=== PATIENT | female | born 1985 | race Caucasian/White ===

== ENCOUNTER 2016-09-10 05:30 | Inpatient (IN) | payer OTHER ==
[~2016-09-10] VITALS: Ht 167.6 cm; Wt 85.3 kg
[~2016-09-10 05:30] MED LIST: ABILIFY2 MG; CELEXA10 MG PO; CIPRO 500MG TA500 MG PO; IBUPROFEN 600M600 MG PO; IRON TABLETS325 MG PO; PERCOCET 5/3251 EACH PO; PHENERGAN 25MG.25 M1 PO; PRENATAL1 TA2 OR; SYNTHROID0.025 MG PO; VICODIN 5/500 T1 TAB PO; [UNRECOGNIZED DRUG - OTHER] OR
[2016-09-10 05:42] VITALS: BP 144/94
[2016-09-10] MEDS ORDERED: SYNTHROID0.137 MG PO (05:52)
[2016-09-10 06:11] LABS: HEMOGLOBIN 13.8 g/dL (12.2-16.2); LYMPH # 2.4 K/mm3 (0.7-4.5); LYMPH % 33.3 % (10-50.0)
[2016-09-10 07:07] LABS: ABO BLOOD TYPE O; RH BLOOD TYPE POSITIVE
[2016-09-10 07:50] LABS: URINE BILIRUBIN - DIPSTICK NEGATIVE (NEG); URINE BLOOD NEGATIVE (NEG)
--- NOTE | 2016-09-10 08:20 | Operative Note ---
Procedure/Operative Record Procedure Date of procedure: 09/10/16 Pre-Op Dx: Term , previous section Post-Op Dx: Term , previous section Procedure performed: Repeat lower segment transverse section Surgeon: Dr. Ovi Baker Research Spec(s): Brittni Diaz Anesthesia: Clara Donovan EBL (ml): 600 Clinical note: She is a 31-year-old 3 para 2 who was 39 weeks gestational age. She's had previous sections and as result of that was offered repeat lower segment transverse section at term. There is some benefits of surgery were discussed with the patient prior to surgery. Operative findings: She delivered a live-born female child at 7:47 AM on the morning of September 10, 2016. The baby had Apgars of 6 at 1 minute and 8 at 5 minutes. PH is currently pending. Ovaries and tubes appeared normal. Operative note: She was taken to the operating room where epidural anesthesia was found be adequate. She was prepped and draped in normal sterile fashion in the supine position with a leftward tilt. A Rodriguez catheter was in the bladder. A Pfannenstiel skin incision was made with knife then carried through to the underlying layer of fascia with cautery. The fascia was opened in the midline with cautery and extended laterally using Mays scissors. Joselyn clamps were applied to the superior aspect of the fascial incision which was tented up and the underlying rectus muscles dissected off using cautery. The Lomita clamps were then applied to the inferior aspect of the fascial incision which in a similar fashion was tented up and the underlying rectus muscles dissected off using cautery. The rectus muscles were then in the midline, the peritoneum identified, and entered sharply with Metzenbaum scissors. This incision was then extended superiorly and inferiorly with cautery. We had good visualization of the bladder inferiorly. The bladder peritoneum was then opened in the midline and extended laterally using Metzenbaum scissors. A bladder flap was created digitally. The lower blade of the Niyah was inserted so as to push the bladder out of the way. Transverse incision was made through the uterine muscle to the amnion. This incision was then extended laterally using fingers traction. The amnion was entered sharply with knife. The infant's head was then delivered atraumatically. This was followed by the anterior shoulder and the rest of the 's body atraumatically. The oropharynx and nasopharynx were bulb suctioned. The was then handed off to Dr. Cruz who assigned Apgars of 6 at 1 minute and 8 at 5 minutes. We then obtained cord blood as well as cord pH. Using gentle traction on the cord and countertraction on the fundus I was able to easily deliver the placenta intact. It had a normal three-vessel cord. The uterus was then cleared of clots and debris and exteriorized from the abdominal cavity. The uterine incision was then closed using running 0 Vicryl suture in a locked fashion. A second layer of the same suture was used to imbricate the first layer. The bladder peritoneum was then closed using running 2-0 Vicryl suture in a locked fashion. The gutters and cul-de-sac were then cleared of clots and debris and the uterus was returned the abdominal cavity. Once again hemostasis was assured. The peritoneum was grasped with Isamar clamps and closed using running 2-0 Vicryl suture. The rectus muscles were then reapproximated using running 0 Vicryl suture. The fascia was closed using running #1 Vicryl suture. The subcutaneous tissues were then irrigated with warm water followed by closure Carisa's fascia using running 2-0 Monocryl suture. The skin was closed with tatum. Sterile dressings were applied. She tolerated the procedure well and was taken to the recovery room in excellent condition. All sponges minute and needle counts were correct. Estimate a blood loss was approximately 600 mL. Conplications: None Specimens: Products of conception at 0820
--- NOTE | 2016-09-10 10:01 | PHARMACY CLINIC NOTE ---
Patient Demographics Patient Demographics Admission date: 09/10/16 Date: 09/10/16 Time: 1000 Allergies Coded Allergies: No Known Allergies (09/10/16) HEIGHT- FT: 5 IN: 6.00 K.276 VTE General Information Labs: Laboratory Tests 09/10 0555 Hematology Hgb (12.2 - 16.2 g/dL) 13.8 Hct (37.0 - 47.0 %) 39.6 Plt Count (142 - 424 K/mm3) 178 Disclaimer The following section includes nursing documentation that has been pulled in for pharmacy review. VTE prophylaxis NQF [id number] VTE prophylaxis ordered? Yes Type of prophylaxis/treatment: ICD at 1000
[2016-09-10] MEDS ORDERED: LEVOTHYROXINE0.05 M2 PO (10:02)
[2016-09-10 20:29] VITALS: BP 125/86
[2016-09-11 07:13] LABS: HEMOGLOBIN 12.2 g/dL (12.2-16.2)
--- NOTE | 2016-09-11 08:24 | ACUTE CARE PROGRESS NOTE (QUA) ---
Progress Notes Subjective Date 09/11/16 Time 0822 Note She continues to do very well. She is eating and drinking and ambulating. She is breast-feeding. Her lochia is normal. Patient/family reports: feeling better, no complaints Objective Findings Last VS-Temp:98.4 B/P:125/86 Pulse:71 Resp:18 SaO2:98 ROOM AIR Last weight lbs:188 oz:0 K.276 Method:Floor Scales Laboratory Tests 09/11/16 0600: Hgb 12.2, Hct 35.3 L Exam General appearance: normal appearance, alert, awake, no acute distress Reviewed: vital signs, lab results Assessment/Plan Problem List 1. Normal Status: Chronic 2. Status post repeat low transverse section Patient condition Improving, Stable Plan: continue current care This inpt stay is expected to cross 2 MNs from start of care Yes Comments: She is doing very well today. We will plan to send her home in 48 hours. at 0887
--- NOTE | 2016-09-11 08:28 | Discharge Summary ---
Discharge Summary Admission date: 09/10/16 Discharge date: 09/13/16 Discharge diagnoses: Term , previous section Clinical note: She is a 31-year-old 3 para 3 who was 39 weeks gestational age. She's had previous sections and as result of that was offered repeat lower segment transverse section at term. Course in hospital: On September 10, 2016 she underwent a repeat lower segment transverse section. She delivered a live-born female child at 7:47 AM on the morning of September 10. The baby had Apgars of 6 at 1 minute and 8 at 5 minutes. She has done well postoperatively and has remained afebrile throughout her hospitalization. She is eating and drinking and ambulating. She is breast- feeding. She has O positive blood, she is rubella immune and was group B streptococcus negative. Laboratory Tests 09/11/16 0600: Hgb 12.2, Hct 35.3 L 09/10/16 0750: Cord Blood pH 7.31 L 09/10/16 0615: Urine Color YELLOW, Urine Appearance CLEAR, Urine pH 6.0, Ur Specific [place] 1.025, Urine Protein NEGATIVE, Urine Ketones NEGATIVE, Urine Blood NEGATIVE, Urine Nitrate NEGATIVE, Urine Bilirubin NEGATIVE, Urine Urobilinogen 0.2, Ur Leukocyte Esterase NEGATIVE, Urine WBC 3-5, Ur Squamous Epith Cells 3-5, Urine Bacteria 1+, Urine Mucus 1+, Urine Glucose NEGATIVE 09/10/16 0555: MCH 32.1 H 09/10/16 0555: Sodium 139, Potassium 3.9, Chloride 106, Carbon Dioxide 22, BUN 13, Creatinine 0.7, Estimated Creat Clear 157, Estimated GFR (MDRD) 98, Glucose 78, Calcium 8.3 L, WBC 7.3, RBC 4.32, Hgb 13.8, Hct 39.6, MCV 91.8, RDW 15.0, Plt Count 178, MPV 9.4, Gran % 59.3, Gran # 4.3, Lymphocytes % 33.3, Monocytes % 6.0, Eosinophils % 0.9, Basophils % 0.5, Lymphocytes # 2.4, Monocytes # 0.4, Eosinophils # 0.1, Basophils # 0.0, PUBS MCHC 34.9, Antibody Screen NEGATIVE, Miscellaneous Test POSITIVE Plans for ongoing care: She is discharged home to follow-up with me in approximately 2 weeks' time. Discharge medications She will continue with her vitamins and iron. She will continue with her thyroid medication. She was given a prescription for Percocet 5/325, 30 tablets as well as Motrin 400 mg, 40 tablets. DC/follow-up instructions She was given the usual instructions with respect to limiting her activity, driving and sexual activity. She was given instructions with respect to wound care. Condition at discharge Stable and improved at 0828
[2016-09-11] MEDS ORDERED: PERCOCET 5/3251 EACH PO (08:29)
[2016-09-11] MEDS ORDERED: MOTRIN 400MG.400 MG PO (08:30)
[2016-09-11 11:16] VITALS: BP 105/53
--- NOTE | 2016-09-11 16:41 | ACUTE CARE PROGRESS NOTE (QUA) ---
Progress Notes Subjective Date 09/11/16 Time 1640 Note The patient is doing well. She is afebrile. Vital signs stable. Wound clean. Abdomen soft. Lochia normal. Uterine fundus involuting well. Complaining of constipation and pressure; I will give her Dulcolax suppository. Assessment/Plan Problem List 1. Normal Status: Chronic 2. Status post repeat low transverse section This inpt stay is expected to cross 2 MNs from start of care Yes at 1640
[2016-09-11 19:40] VITALS: BP 134/88
[2016-09-12 08:00] VITALS: BP 134/83
--- NOTE | 2016-09-12 08:41 | ACUTE CARE PROGRESS NOTE (QUA) ---
Progress Notes Subjective Date 09/12/16 Time 0840 Note This is /postop day number 2. The patient is afebrile. Vital signs stable. Wound clean. Abdomen soft. Lochia normal. Uterine fundus involuting well. She is breast-feeding well. Impression: Stable. Assessment/Plan Problem List 1. Normal Status: Chronic 2. Status post repeat low transverse section This inpt stay is expected to cross 2 MNs from start of care Yes at 0840
--- NOTE | 2016-09-12 18:43 | ACUTE CARE PROGRESS NOTE (QUA) ---
Progress Notes Subjective Date 09/12/16 Time 1842 Note The patient is doing well. Wound clean. Abdomen soft. Lochia normal. Impression: Stable. Assessment/Plan Problem List 1. Normal Status: Chronic 2. Status post repeat low transverse section This inpt stay is expected to cross 2 MNs from start of care Yes at 1842
[2016-09-12 21:24] VITALS: BP 139/91
--- NOTE | 2016-09-13 08:47 | ACUTE CARE PROGRESS NOTE (QUA) ---
Progress Notes Subjective Date 09/13/16 Time 0846 Note This is /postop day number 3. The patient is afebrile. Vital signs stable. Wound clean. [place] will be removed and Steri-Strips applied. Abdomen soft. Lochia normal. Uterine fundus involuting well. Hemoglobin 12.2 g. She will be discharged today. Assessment/Plan Problem List 1. Normal Status: Chronic 2. Status post repeat low transverse section This inpt stay is expected to cross 2 MNs from start of care Yes at 0846
[2016-09-13 09:00] VITALS: BP 130/83
== END 2016-09-13 11:00 | disposition home or self-care (01) | DRG 766 ==
LOC: OB 05:30 → SDC 07:30 → OB 07:30 → EDSTATUS 07:30 → OB 09-13 11:00
PROVIDERS: Nurse Practitioner Obstetrics & Gynecology
PROC: 10D00Z1 Extraction of Products of Conception, Low, Open Approach (ICD-10-PCS; principal; 2016-09-10 07:30)
DX: O34.211 Maternal care for low transverse scar from previous cesarean delivery (principal); N85.8 Other specified noninflammatory disorders of uterus; Z3A.39 39 weeks gestation of pregnancy; Z37.0 Single live birth
CPT/HCPCS: J0131; J2405